=== PATIENT | female | born 1955 | race Caucasian/White ===

== ENCOUNTER → 2021-12-09 09:09 | Outpatient (BNVA) | payer OTHER, SELFPAY | PROVIDERS: Family Provider Family Medicine; Visit Provider Family Medicine | DX: K21.9 Gastro-esophageal reflux disease without esophagitis (principal); N39.41 Urge incontinence; B00.1 Herpesviral vesicular dermatitis; Z13.6 Encounter for screening for cardiovascular disorders | CPT/HCPCS: 80053; 80061; 84443; 85025 ==

== ENCOUNTER 2022-03-07 07:47 | Outpatient (CLI) | payer OTHER, SELFPAY ==
--- NOTE | 2022-03-07 08:06 | MM_ITS ---
WS: [id number] Bilateral screening 3D tomosynthesis digital mammogram, 03/07/2022 Clinical Data: SCREEN Comparison: 07/20/2008 Findings: The breast parenchymal pattern shows ingenious density. No spiculated masses or clustered calcificati ons are seen. There are no secondary signs of carcinoma. MM/[place] [id number] Impression: 1. Negative bilateral mammogram unchanged. 2. Recommend annual screening mammograms. BIRADS: 1-Negative FOLLOW UP: 1 Year Follow-up The CAD tip length checker was used.
== END 2022-03-07 07:48 | disposition home or self-care (01) ==
LOC: RAD 07:49
PROVIDERS: PCP Family Medicine; Visit Provider Family Medicine
DX: Z12.31 Encounter for screening mammogram for malignant neoplasm of breast (principal)
CPT/HCPCS: 77063; 77067

== ENCOUNTER 2022-07-18 07:08 | Day surgery (SDC) | payer OTHER, SELFPAY ==
[2022-07-16 10:58] VITALS: BMI 25.8
[2022-07-18] MEDS: sodium chloride 0.9% 1,000 ML 30 ML IV (07:33)
[2022-07-18 07:34] VITALS: BP 146/88; PULSE 88; RESP 18; TEMP 36.1; O2SAT 95
--- NOTE | 2022-07-18 08:13 | ANES.PREANE2 ---
Pre-Anesthetic Assessment Height/Weight: Height 1.68 m Weight 72.575 kg Temp Pulse Resp BP Pulse Ox O2 Del Method 97.0 F L 88 18 146/88 95 07/18/22 07:34 07/18/22 07:34 07/18/22 07:34 07/18/22 07:34 07/18/22 07:34 07/18/22 07:34 Preop Diagnosis: screening Operation Date: 07/18/22 08:45 Proposed Procedures p Colonoscopy 37667,Z12.11(Not Applicable) - Michael Glynn DO Familial anesthetic complications: none Was Beta Kamari taken within 24 hours: N/A Was Clonidine taken within 24 hours: N/A Last intake: Intake Last Liquid Date 07/17/22 Last Liquid Time 22:00 Last Solid Date 07/16/22 Last Solid Time 19:00 Last Intake: 22:00 Social No alcohol and No tobacco Exam alert, oriented x 3, clear to auscultation bilaterally and regular rate & rhythm Airway Submandibular: within normal limits Cervical ROM: within normal limits Mallampati: Class II Dentition: full Pulmonary None reported CV/HEM None reported None reported Hepatic None reported GI Gastroesophageal Reflux Disease (controlled) Metabolic None reported Musc/skel None reported Neuropsych None reported Anesthetic Plan ASA status: 1 Anesthesia: MAC Risk of > 500 ml blood loss (7ml/kg in children): No Medications/Allergies Home Medications Medication Instructions Recorded Confirmed Last Taken Type Saccharomyces boulardii 250 mg 250 mg PO DAILY 11/05/21 07/18/22 07/17/22 History capsule (Digest Probiotic (S.boulardii)) omeprazole 40 mg capsule,delayed 40 mg PO DAILY #90 caps 06/04/22 07/18/22 07/17/22 Rx release oxybutynin chloride 10 mg 10 mg PO DAILY #90 tabs 06/09/22 07/18/22 07/17/22 Rx tablet,extended release 24 hr Allergies Allergy/AdvReac Type Severity Reaction Status Date / Time Penicillins Allergy ALGY-Rash Verified 07/18/22 07:33 Current Medications Generic Name Dose Route Start Last Admin Trade Name Freq PRN Reason Stop Dose Admin Sodium Chloride 1,000 mls @ 30 mls/hr 07/18/22 07:30 07/18/22 07:33 Sodium Chloride 0.9% IV 07/19/22 07:29 30 mls/hr .Q24H HERMES Administration PFSH Anesthesia Medical History No pertinent past medical history Surgical History History of bladder repair surgery History of hysterectomy VIVIENNE Family History Other Cancer Diabetes Hypertension Lung disease Stroke Denies family history of CAD (coronary artery disease) Clotting disorder Dementia Hyperlipidemia Psychiatric illness Chronic kidney disease (CKD) Suicide Anesthesia complication Bleeding disorder Family history of premature coronary artery disease Social History Smoking and tobacco status: never smoked Alcohol intake: current Alcohol intake frequency: few times a month Adopted: No Lives independently: Yes Household members: spouse Housing: House Data Anesthesia Cardiac Studies: No Data to Display
--- NOTE | 2022-07-18 09:01 | P.HP_ITS ---
Providers/Chief Complaint Primary Care Provider: Lori Borrero DO Chief Complaint: Encounter for screening History of Present Illness Cherry Ram is a 67 year old female here for a screening colonoscopy. Her last one was over 10 years ago, reportedly. She reports that her mother did have colon cancer. She denies any abdominal pain, nausea, emesis, diarrhea, constipation, hematochezia and/or melena. Medications/Allergies Home Medications Medication Instructions Recorded Confirmed Last Taken Type Saccharomyces boulardii 250 mg 250 mg PO DAILY 11/05/21 07/18/22 07/17/22 History capsule (Digest Probiotic (S.boulardii)) omeprazole 40 mg capsule,delayed 40 mg PO DAILY #90 caps 06/04/22 07/18/22 07/17/22 Rx release oxybutynin chloride 10 mg 10 mg PO DAILY #90 tabs 06/09/22 07/18/22 07/17/22 Rx tablet,extended release 24 hr Allergies Allergy/AdvReac Type Severity Reaction Status Date / Time Penicillins Allergy ALGY-Rash Verified 07/18/22 07:33 PFSH Acute PFSH: Medical History No pertinent past medical history Surgical History History of bladder repair surgery History of hysterectomy VIVIENNE Family History Other Cancer Diabetes Hypertension Lung disease Stroke Denies family history of CAD (coronary artery disease) Clotting disorder Dementia Hyperlipidemia Psychiatric illness Chronic kidney disease (CKD) Suicide Anesthesia complication Bleeding disorder Family history of premature coronary artery disease Social History Smoking and tobacco status: never smoked Alcohol intake: current Alcohol intake frequency: few times a month Adopted: No Lives independently: Yes Household members: spouse Housing: House Vitals/I&O/Wt Last Vital Signs Temp 97.0 F L 07/18/22 07:34 Pulse 88 07/18/22 07:34 Resp 18 07/18/22 07:34 BP 146/88 07/18/22 07:34 Pulse Ox 95 07/18/22 07:34 O2 Del Method 07/18/22 07:34 Weight last 48 hrs Weight 160 lb A&P Assessment and plan (1) Colon cancer screening: Plan Colonoscopy The risks and benefits of the procedure, including bleeding, infection, intestin al perforation requiring surgery, missed lesion were explained to the patient. The patient is understanding of the risks and wishes to proceed. Attestations Medical Necessity Statement*: Home Coding Level of Care Code Acute Code for Chg Fwd Diagnoses Colon cancer screening Z12.11
[2022-07-18 09:20] VITALS: BP 130/77; PULSE 91; RESP 16; TEMP 36.1; O2SAT 97
[2022-07-18 09:30] VITALS: BP 146/72; PULSE 87; RESP 18; O2SAT 96
--- NOTE | 2022-07-18 17:58 | ANE.PACU2 ---
Inpatient post-anesthesia follow up: Airway intact: Yes Vital signs: Temperature 97.0 F Pulse Rate 87 Respiratory Rate 18 Blood Pressure 146/72 Pulse Oximetry 96 Oxygen Delivery Me thod Room Air Oxygen Flow Rate 3 Fraction of Inspir ed Oxygen Hydration adequate: Yes Nausea and vomiting: No Pain level: 1 Mental status: Baseline
== END 2022-07-18 09:48 | disposition home or self-care (01) ==
PROVIDERS: PCP Family Medicine; Visit Provider Surgery
PROC: 0DJD8ZZ Inspection of Lower Intestinal Tract, Via Natural or Artificial Opening Endoscopic (ICD-10-PCS; CPT 45378; principal; 2022-07-18 08:45)
DX: Z12.11 Encounter for screening for malignant neoplasm of colon (principal); K57.30 Diverticulosis of large intestine without perforation or abscess without bleeding; D12.8 Benign neoplasm of rectum; K21.9 Gastro-esophageal reflux disease without esophagitis
CPT/HCPCS: 45385; 88305; J2704; J7030

== ENCOUNTER → 2022-12-01 09:05 | Outpatient (BNVA) | payer OTHER, SELFPAY | PROVIDERS: PCP Family Medicine; Visit Provider Family Medicine | DX: E78.5 Hyperlipidemia, unspecified (principal) | CPT/HCPCS: 80053; 80061; 85025 ==

== ENCOUNTER 2023-03-20 06:48 | Outpatient (CLI) | payer MEDICARE, SELFPAY ==
--- NOTE | 2023-03-20 07:00 | CT_ITS ---
WS: [id number] CT PARANASAL SINUSES HISTORY: Recurrent Sinusitis TECHNIQUE: Contiguous 2.5 mm axial images obtained through the sinuses. Images are reconstructed in s agittal and coronal planes. All CT scans at [facility] use at least one of these dose optimiz ation techniques: automated exposure control; mA and/or kV adjustment per patient size (includes targ eted exams where dose is matched to clinical indication); or iterative reconstruction. DLP: 387.45 mGy COMPARISON: None available. Frontal sinuses: Minimally aerated frontal sinuses. Frontal ethmoid recesses are normal. No mucoperio steal thickening. Sphenoid sinus: Normal. Ethmoid sinuses: Normal. Maxillary sinus: Normal. No air-fluid levels or mucous retention cyst. Ostiomeatal unit: Widely patent. No obstruction. No soft tissue abnormality. There is mild LEFT curvature of the nasal septum without bony spurring. No destructive bone lesions. Visualized orbits and globes are negative. IMPRESSION: 1. No air-fluid levels or any significant sinus disease. 2. Ostiomeatal units are widely patent.
[2023-03-20 07:16] LABS: Blood Urea Nitrogen 12 mg/dL (8-23); Glomerular Filtration Rate 61.9 mL/min (90-130)
[2023-03-20] MEDS: iohexol 350 mg/mL 500 mL Btl (per mL) IV (07:23)
== END 2023-03-20 06:49 | disposition home or self-care (01) ==
LOC: RAD 06:48
PROVIDERS: PCP Family Medicine; Visit Provider Family Medicine
DX: J32.9 Chronic sinusitis, unspecified (principal)
CPT/HCPCS: 70487; 82565; 84520; Q9967

== ENCOUNTER → 2023-03-23 12:48 | Outpatient (BNVA) | payer MEDICARE, SELFPAY | PROVIDERS: PCP Family Medicine; Visit Provider Otolaryngology | DX: J32.9 Chronic sinusitis, unspecified (principal); R42 Dizziness and giddiness; J34.89 Other specified disorders of nose and nasal sinuses | CPT/HCPCS: 99203; 99204 ==

== ENCOUNTER → 2023-07-01 09:03 | Outpatient (BNVA) | payer MEDICARE, SELFPAY | PROVIDERS: PCP Family Medicine; Visit Provider Family Medicine | DX: E78.5 Hyperlipidemia, unspecified (principal) | CPT/HCPCS: 80053; 80061 ==

== ENCOUNTER 2023-07-17 09:15 | Outpatient (CLI) | payer MEDICARE, SELFPAY ==
--- NOTE | 2023-07-17 09:17 | MM_ITS ---
WS: [id number] SCREENING DIGITAL BREAST TOMOSYNTHESIS MAMMOGRAM WITH CAD HISTORY: screening COMPARISON: 03/07/2022, 07/20/2008 Bilateral CC and MLO with tomosynthesis and synthetic mammography submitted. Computer aided detection analyzed. Breast composition: The breasts are heterogeneously dense, which may obscure small masses. There is a new dense asymmetry just posterior to the RIGHT subareolar on the lateral projection. Asymmetry appe ars more prominent than on prior studies and is not definitely seen on the CC projection but may be o bscured by the additional dense fibroglandular tissue. Benign calcifications in each breast. IMPRESSION: RIGHT: Spot compression views (CC and MLO). True ML. Ultrasound to follow if abnormality persists. MM/[place] [id number] BI-RADS: 0-Incomplete: Need additional imaging evaluation FOLLOW UP: Additional imaging recommended:
== END 2023-07-17 09:16 | disposition home or self-care (01) ==
PROVIDERS: PCP Family Medicine; Visit Provider Family Medicine
DX: Z12.31 Encounter for screening mammogram for malignant neoplasm of breast (principal); R92.323 Mammographic fibroglandular density, bilateral breasts
CPT/HCPCS: 77063; 77067

== ENCOUNTER 2023-07-28 09:51 | Outpatient (CLI) | payer MEDICARE, SELFPAY ==
--- NOTE | 2023-07-28 10:00 | MM_ITS ---
WS: [id number] ADDITIONAL VIEWS RIGHT MAMMOGRAM WITH DIGITAL BREAST TOMOSYNTHESIS. RIGHT BREAST ULTRASOUND HISTORY: Dense asymmetry central RIGHT breast. COMPARISON: 07/17/2023 and 03/07/2022 RIGHT MAMMOGRAM: Spot compression views and true ML with digital breast tomosynthesis and SM. Dense asymmetry is reidentified and persists in the central RIGHT breast. This is predominantly along the 12-6 o'clock axis. There is no distortion. No discrete mass. Ultrasound will be performed also. RIGHT BREAST ULTRASOUND 2-D and color Doppler imaging submitted. No abnormalities noted along the 12:00 or 6:00 axis of the RIGHT breast in the area of very dense fib roglandular tissue. No shadowing or mass. IMPRESSION: MM/[place] [id number] BI-RADS: 2-Benign FOLLOW UP: 1 Year Follow-up
--- NOTE | 2023-07-28 11:03 | US_ITS ---
WS: [id number] ADDITIONAL VIEWS RIGHT MAMMOGRAM WITH DIGITAL BREAST TOMOSYNTHESIS. RIGHT BREAST ULTRASOUND HISTORY: Dense asymmetry central RIGHT breast. COMPARISON: 07/17/2023 and 03/07/2022 RIGHT MAMMOGRAM: Spot compression views and true ML with digital breast tomosynthesis and SM. Dense asymmetry is reidentified and persists in the central RIGHT breast. This is predominantly along the 12-6 o'clock axis. There is no distortion. No discrete mass. Ultrasound will be performed also. RIGHT BREAST ULTRASOUND 2-D and color Doppler imaging submitted. No abnormalities noted along the 12:00 or 6:00 axis of the RIGHT breast in the area of very dense fib roglandular tissue. No shadowing or mass. IMPRESSION: US/US breast RT limited* [id number] BI-RADS: 2-Benign FOLLOW UP: 1 Year Follow-up
== END 2023-07-28 09:52 | disposition home or self-care (01) ==
PROVIDERS: PCP Family Medicine; Visit Provider Family Medicine
DX: N63.15 Unspecified lump in the right breast, overlapping quadrants (principal)
CPT/HCPCS: 76642; 77061; G0279

== ENCOUNTER → 2023-12-30 08:14 | Outpatient (BNVA) | payer MEDICARE, SELFPAY | DX: E78.5 Hyperlipidemia, unspecified (principal); Z76.89 Persons encountering health services in other specified circumstances | CPT/HCPCS: 80053; 80061; 85025 ==

== ENCOUNTER → 2024-02-04 14:41 | Outpatient (BNVA) | payer MEDICARE, SELFPAY | PROVIDERS: Visit Provider Emergency Medicine | DX: R30.0 Dysuria (principal); R39.9 Unspecified symptoms and signs involving the genitourinary system | CPT/HCPCS: 87086 ==

== ENCOUNTER 2024-07-28 12:39 | Outpatient (CLI) | payer MEDICARE, SELFPAY ==
--- NOTE | 2024-07-28 12:40 | MM_ITS ---
WS: [id number] BILATERAL SCREENING DIGITAL TOMOSYNTHESIS MAMMOGRAM WITH CAD HISTORY: screening COMPARISON: 07/28/2023, 07/17/2023, 03/07/2022 Bilateral CC and MLO views with tomosynthesis and synthetic mammography submitted. Computer aided detection analyzed. Breast composition: The breasts are heterogeneously dense, which may obscure small masses. No suspicious masses, microcalcifications or architectural distortion. Benign calcifications in each breast. MM/MM [facility] tomosynthesis [id number] IMPRESSION: BI-RADS: 2 - Benign FOLLOW UP: 1 Year Follow-up
--- NOTE | 2024-07-28 13:00 | XR_ITS ---
WS: [email or web address] DEXA (DUAL ENERGY X-RAY ABSORPTIOMETRY) Bone mineral density was performed using a Atlas Powered machine. HISTORY: postmenopausal COMPARISON: None available. Lumbar spine BMD (L1-L4): 1.300 g/cm2 T score: 1.0 Z score: 2.3 Total hip BMD: Left: 0.945 g/cm2. T score: -0.5 Z score: 0.7 Right: 0.971 g/cm2. T score: -0.3 Z score: 0.9 10 year probability of a major osteoporotic fracture is 10.4%. XR/XR DEXA axial skeleton* [id number] IMPRESSION: NORMAL BONE MINERAL DENSITY based upon the WHO classification for females.
== END 2024-07-28 12:40 | disposition home or self-care (01) ==
LOC: RAD 12:41
PROVIDERS: PCP Family Medicine; Visit Provider Family Medicine
DX: Z12.31 Encounter for screening mammogram for malignant neoplasm of breast (principal); Z78.0 Asymptomatic menopausal state; R92.333 Mammographic heterogeneous density, bilateral breasts; R92.1 Mammographic calcification found on diagnostic imaging of breast
CPT/HCPCS: 77063; 77067; 77080

== ENCOUNTER → 2024-12-16 14:46 | Outpatient (BNVA) | payer MEDICARE, SELFPAY | PROVIDERS: PCP Family Medicine; Visit Provider Nurse Practitioner | DX: R39.9 Unspecified symptoms and signs involving the genitourinary system (principal); N30.01 Acute cystitis with hematuria | CPT/HCPCS: 81000; 84300; 87086 ==

== ENCOUNTER → 2025-01-12 09:46 | Outpatient (BNVA) | payer MEDICARE, SELFPAY | PROVIDERS: PCP Family Medicine; Visit Provider Family Medicine | DX: Z13.6 Encounter for screening for cardiovascular disorders (principal); E78.5 Hyperlipidemia, unspecified; K21.9 Gastro-esophageal reflux disease without esophagitis; N39.41 Urge incontinence; J30.9 Allergic rhinitis, unspecified | CPT/HCPCS: 80053; 80061; 84443; 85025 ==

== ENCOUNTER → 2025-02-02 16:08 | Outpatient (BNVA) | payer MEDICARE, SELFPAY | PROVIDERS: PCP Family Medicine; Visit Provider Emergency Medicine | DX: R39.9 Unspecified symptoms and signs involving the genitourinary system (principal) | CPT/HCPCS: 81000; 87086 ==